=== PATIENT | female | born 1975 | race Two or more races ===

== ENCOUNTER → 2018-03-06 | Outpatient (CLI) | payer OTHER | END | disposition home or self-care (01) | LOC: MAMO-SONO 10:15 | DX: Z12.31 Encounter for screening mammogram for malignant neoplasm of breast (principal); Z80.3 Family history of malignant neoplasm of breast ==

== ENCOUNTER 2019-04-02 11:35 | Outpatient (CLI) | payer OTHER | END 2019-04-02 11:46 | disposition home or self-care (01) | LOC: MAMO-SONO 11:35 | DX: Z12.31 Encounter for screening mammogram for malignant neoplasm of breast (principal); Z87.898 Personal history of other specified conditions; N60.01 Solitary cyst of right breast; N60.02 Solitary cyst of left breast ==

== ENCOUNTER 2024-08-16 06:45 | Day surgery (SDC) | payer OTHER ==
[2024-08-09 10:25] VITALS: BP 122/83
[~2024-08-16] VITALS: Ht 172.7 cm; Wt 91.2 kg
[~2024-08-16 06:45] MED LIST: CLARITIN5 MG PO; ZEPBOUND2.5 MG/0.5; [UNRECOGNIZED DRUG - OTHER] PO
[2024-08-16] MEDS ORDERED: CEFAZOLIN SODIUM 1,000 MG VIAL ONE (13:04)
[2024-08-16] MEDS ORDERED: CEFAZOLIN SODIUM 1,000 MG VIAL IV ONE (15:45)
[2024-08-16] MEDS ORDERED: MORPHINE SULFATE 4 MG/ML VIAL IV ONE (18:05)
== END 2024-08-16 19:40 | disposition home or self-care (01) ==
LOC: CIR.AMB 06:45
PROVIDERS: ATTEND Surgery
DX: D48.62 Neoplasm of uncertain behavior of left breast (principal); G43.909 Migraine, unspecified, not intractable, without status migrainosus